=== PATIENT | female | born 1990 | race Caucasian/White ===

== ENCOUNTER 2017-06-16 12:39 | Emergency (ER) | payer OTHER ==
[2017-06-16 12:44] VITALS: TEMP 98.1; O2SAT 99
--- NOTE | 2017-06-16 13:10 | EDPHY ---
H & P Smoking Status: Never smoked Time Seen by Provider: 06/16/17 12:48 HPI/ROS: CHIEF COMPLAINT: Fall, right hip and elbow pain HISTORY OF PRESENT ILLNESS: 27-year-old female presents to the emergency department with pain in her right hip and her left elbow. The patient was in you trauma 6 days ago and fell while she was hiking. She landed on her right hip. She states that rocks were falling and she got hit in her left elbow as well as abrasions in her lower legs. She ran and ultra marathon, 60 miles, on , 4 days after her original fall and although she had pain she was able to finish. She states that she return to [place] the following day on Saturday and today now 2 days later she has had increasing pain especially in her right hip. She is unable to lie on her right side because of the pain in her right hip which causes than her toes to go numb. She has some mild pain in her left elbow and is more concerned that she has retained rock in her left elbow. She is unsure of her last tetanus shot. She denies paresthesias in her upper or lower extremities. Denies abdominal pain. Denies neck or back pain. Denies chest pain or difficulty breathing. Denies headache. She did not hit her head or lose consciousness. REVIEW OF SYSTEMS: Constitutional: No fever, no chills. Eyes: No double or blurry vision. ENT: No sore throat. Respiratory: No cough, no shortness of breath. Cardiac: No chest pain. Gastrointestinal: No abdominal pain, vomiting or diarrhea. Genitourinary: No dysuria. Musculoskeletal: No neck or back pain. Skin: Abrasions. No rashes. Neurological: No headache. (Patricia Rocha) Past Medical/Surgical History: Negative (Patricia Rocha M) Social History: Recently moved to [place] from [place] (Josefina,Patricia M) Physical Exam: General Appearance: Alert, no distress. No visible signs of trauma to her head. She is mentating normally and answering questions appropriately. Eyes: Pupils equal and round. Extraocular motions are all intact. ENT: Mouth: Mucous membranes moist. Respiratory: No wheezing, rhonchi, or rales, lungs are clear to auscultation. Cardiovascular: Regular rate and rhythm. Gastrointestinal: Abdomen is soft and nontender, no masses, no rebound or guarding, bowel sounds normal. Neurological: Alert and oriented x 3, cranial nerves II through XII grossly intact Skin: Warm and dry, no rashes. Musculoskeletal: Nontender to palpate along the cervical, thoracic or lumbar spine. Neck is supple. Extremities: Large hematoma noted to the posterior lateral aspect of her right hip and buttock. It extends down to the mid right thigh. It is tender to palpate. She is able to fully extend her right hip and her right knee however this does cause pain. She has pain although mildly with external and internal rotation of her right hip. Nontender to palpate over the lumbar spine over right or left flank area. Psychiatric: Patient is oriented X 3, there is no agitation. (Patricia Rocha) Constitutional: Initial Vital Signs Temperature (C) 36.7 C 06/16/17 12:40 Heart Rate 92 06/16/17 12:40 Respiratory Rate 18 06/16/17 12:40 Blood Pressure 107/72 06/16/17 12:40 O2 Sat (%) 99 06/16/17 12:40 O2 Delivery Mode Room Air Allergies/Adverse Reactions: cefaclor [From Ceclor] Allergy (Verified 06/16/17 12:41) doxycycline Allergy (Verified 06/16/17 12:42) Penicillins Allergy (Verified 06/16/17 12:41) Home Medications: Medication Instructions Recorded NK [No Known Home Meds] 06/16/17 Medical Decision Making - Diagnostics Imaging: I viewed and interpreted images myself ED Course/Re-evaluation: 27-year-old female presents to the emergency department with injury to her right hip and left elbow. X-rays reveal no fractures. The patient has a large hematoma noted to the right buttock and posterior thigh. No evidence of compartment syndrome. She is able to ambulate. No signs of infection. Patient was given orthopedic referral. (Patricia Rocha) I did not see this patient while she was in the emergency department. However her care was discussed with the PA while the patient was in the department. I agree with treatment plan and management (Rome Cuello) Differential Diagnosis: Including but not limited to fracture, dislocation, contusion, sprain (Patricia Rocha) - Data Points Medications Given: Discontinued Medications Diphtheria/Tetanus/Acell Pertussis (Boostrix) 0.5 ml IM .ONCE ONE Stop: 06/16/17 13:46 Last Admin: 06/16/17 13:53 Dose: 0.5 ml Departure - Departure Disposition: Home, Routine, Self-Care Clinical Impression: Contusion of right hip, Hematoma of right hip, Superficial abrasion, Contusion of left elbow Condition: Good Instructions: Contusion in Adults (ED), Abrasion (ED), Acute Wounds (ED) Additional Instructions: Ice to help reduce swelling. Ibuprofen 600mg every 8 hours for pain as directed. Weight bear and activity as tolerated. Referrals: Griffin Arechiga MD [Medical Doctor] - 2-3 days, call for appt. (Orthopedic surgeon on-call)
[2017-06-16] MEDS ORDERED: TDAP ADULT 0.5 ML INJ (BOOSTRIX) IM ONE (13:45)
[2017-06-16 13:59] VITALS: BP 109/71; PULSE 62; RESP 16
== END 2017-06-16 13:58 | disposition home or self-care (01) ==
DX: S70.01XA Contusion of right hip, initial encounter (principal); S50.02XA Contusion of left elbow, initial encounter; S80.811A Abrasion, right lower leg, initial encounter; Z23 Encounter for immunization; W18.09XA Striking against other object with subsequent fall, initial encounter; Y99.8 Other external cause status; Y93.01 Activity, walking, marching and hiking

== ENCOUNTER 2018-12-22 05:41 | Observation (INO) | payer MEDICAID ==
--- NOTE | 2018-12-21 19:55 | PDGENHP ---
History and Physical - Chief Complaint Bilateral Hip Pain - History of Present Illness 1. Bilateral~Femoroacetabular impingement (KADEN) Cam type 2. Clinical suspicion of Bilateral Femoral Antetorsion HISTORY OF PRESENT ILLNESS: Normais a~28 y.o.~very~~active~female~who I have had the pleasure to consult on today.~I have enjoyed meeting her.~Nisha~lives in [place].~~Normaruns a [employer].~~Nisha~is ;~nisha~has 2~children (6 yo twin girls).~~Normaenjoys distance running, climbing, mountaineering. Dukes~bilateral~hip pain started 2014 on the L, with~some~recalled trauma or injury~(planted on her L foot resulting in a foot fracture, but had continued L hip pain at that), and with~some~previous complaints~(some mild pain since childhood).~R side has been bothering her for about 2 years. Unable to do any of her activities since April 2018.~Normadoes not have~a known history of hip dysplasia. Presentation today is of~anterior~and C-shaped distribution~bilateral~hip pain. ~The hip~does~wake her~at night and~does~click and catch on~her. Sitting~does not present a problem~for her.~Normadoes not~report suffering from lower back pain episodes. Normahas~participated in physical therapy in 2014 x1 year (continues home exercises)~and has not~tried other conservative measures.~Nisha~has not~received sufficient symptomatic improvement. Normahas~utilized medication for pain management, including NSAID.~Normahas used medication when being more active or running x1 year. Normaunderstands that~nisha~has a hip and pelvis problem which should be researched and wishes to get a better understanding of~her~hip status, followed by an establishment of a treatment strategy, hoping~basilwould be able to get back to~her~well being active life. History: Past medical history:~~ Patient~~has no past medical history on file. Relevant familial history:~Unknown (adopted) Past surgical history:~ No. Surgery Anesthesia Year Outcome 1 Epidural 2011 No complications Normahas never received general anesthesia. I have reviewed, verified and agree with the past medical, surgical, family and social history. Current Medications:~has a current medication list which includes the following prescription(s): acetazolamide, ciprofloxacin, nifedipine, and ondansetron. ALLERGIES:~has no allergies on file. Objective: Physical Examination: Normais 5~feet~1~inches tall and weighs~112~Lbs. Normais AAO x3; she~is well -nourished, in NAD. Skin is warm and dry. ~Breathing is non-labored. ~CV with RRR by pulse. Abdomen is soft, NTND. Currently,~she~walks with a~normal~gait. Trendelenburg sign is~negative~and proprioception~is reduced,~both~sides. She~presents~with mild~signs of joint laxity.~Beightons Score:~4 (b/l knees, L elbow, L pinky) She~is fit looking. ~~ Lower spine examination is~negative~for sciatic or femoral nerve irritation with negative~SLR &~femoral stretch tests. Range of motion of the spine is normal~for flexion, extension, and rotations,~with no~associated pain. Strength, Sensation and pulses are~normal -~bilaterally Ankles and knees exams are~normal~and~no~mal-alignment is evident.~ She~has~no leg length discrepancy. Thigh circumference is~symmetric~with no evidence for muscle atrophy~on both~ sides. Hip ROM (degrees): FL ER At 90~hip FL IR At 90~hip FL AB AD EX IR Neutral hip ER Neutral hip R 100 45 30 35 5 5 50 15 L 100 45 20 35 10 5 50 10 Specific hip and pelvis tests: Impingement Test SUKHJINDER Roll Add. Longus R +++ +++ Negative Negative L +++ +++ Negative Negative Glut. Med ITB Posterior Imp R +++ 5/5 strength Negative 5/5 strength +++~(anterior) L +++ 5/5 strength Negative 5/5 strength +++~(anterior) Squeeze test measured~weak~with anterior groin pain. Bony Symphysis pubis is~pain free~to touch while concentric activity of the rectus abdominis, does not~produce pain at its insertion. Ilio Psos specific tests are~negative for pain during cycling for~both hips~and~ remarkable for non painful snap HF has~pain~both hips.~L>>R Lateral~capsule tenderness bilaterally. Greater trochanteric burse is~painful~on both hips. Piriformis tests: FAIR is~negative,~with no~local signs of neuritis related to sciatic nerve. SIJs examination is~normal~with~normal~SUKHJINDER in relation and local tenderness. Hamstrings tests are~positive~tendinopathy the left hip. On a daily basis, the following percentages reflectMisty's overall total pain: Deep hip:~80% GT:~20% Imaging: Radiology studies which I~have personally reviewed, analyzed and measured are below: XR: AP of the hip and pelvis: Performed in a~good~technique Coccyx to pubic symphysis distance~2~cm. 10~degrees cephal [place]~Lines are preserved. Minimal~Pathological signs are seen in the Symphysis Pubis.~ Minimal~Pathological signs are seen at the Ischial~tuberosity. ~ Specific measurements show:~ 0 deg WB (10 deg corrected) NSA~ LCE Sourcil~Angle Sharp's angle Lat. Cam Lat. Pincer C.Over~sign Head~Coverage % ATDmm R 133 28 3 38 Neg Neg 1-2:00 75% 20.4 L 133 31 4 40 Neg Neg 1-2:00 77% 24.5 Pos. wall sign ISS NAD ~~Dysplasia Comments R Negative + 10.8~mm Negative L Negative + 9.7~mm Negative Sclerosis Sup. Lat. OA Cysts Joint Space-WBZ Joint Space-Medial R Negative Negative Negative 3.4~mm 3.0~mm L Negative Negative Negative 3.4~mm 3.0~mm X Table lateral: Anterior cam lesion is~seen~on both hips. Alpha Angle: ~ Right~55~degrees Left~51~degrees Impression and plan:Robinson Greenis a~28 y.o.~active female~suffering from symptomatic~Bilateral~ Femoroacetabular impingement (KADEN) Cam type,~Clinical suspicion of Bilateral Femoral Antetorsion~causing significant disability to~her~and altering~her~ sport and life activities. Physical examination, imaging, and~her~story correspond with the diagnosis mentioned above. I explained that femoral malrotation is a condition wherein the hip joint has excessive play~and instability due to the orientation of the femur bone or where the femur bone is rotated towards the back of the hip socket resulting in additional impingement pathology. This pathology ranges in severity with treatment options being specific to the nature of the problem. Left untreated, the ante-torsion related instability or the retro-torsion related impingement in the hip joint can cause progressive tearing of the labrum and deterioration of the surface cartilage, ultimately resulting in progressive osteoarthritis of the hip. ~ I explained that femoroacetabular impingement (KADEN - Cam type) arises due to a bony or soft tissue conflict between the femur (ball) and acetabulum (socket) caused by an abnormality in the shape of the femoral head and neck. Over time, repetitive impingement can result in damage to the labrum and adjacent surface cartilage within the socket, ultimately giving rise to progressive osteoarthritis of the hip. ~ I explained that although a labral tear can be a source of pain, it is rarely the root of the problem and typically occurs secondary to an underlying abnormality in the shape and mechanics of the hip joint. ~ I reviewed conservative treatment options for Femoral malrotation and KADEN including activity modification to avoid positions of impingement or instability , physical therapy, non-steroidal anti-inflammatory medications, and various injections (corticosteroid and PRP) aimed at reducing inflammation in the hip joint or/and preventing dynamic instability and impingement. PRP injections may promote healing and reduce symptoms in certain cases but it will not repair chronically damaged tissue. Although these measures may help to buy time~and reduce current level of symptoms, they are not a definitive solution to the problem given the underlying abnormality in the shape of the hip joint. ~ Patients who have failed conservative management and continue to experience symptoms are candidates for definitive surgical treatment, which may consist of hip arthroscopy alone or in combination with more invasive bony realignment procedures of the femur called derotational femoral osteotomy (DFO), where the femur bone is rotated to the normal anatomical range. ~ Hip arthroscopy typically includes treating the labrum with either repair or reconstruction of the torn labrum; as well as addressing the underlying abnormalities by restoring the normal shape to the hip joint. If the cartilage is damaged a Microfracture surgical procedure may also be necessary to help stimulate the growth of fibrocartilage. If a patient requires a labral reconstruction or a microfracture, the initial rehabilitation from the surgery may take longer, but the roasterman results are typically favorable. I reviewed the technical aspects of hip arthroscopy including risks, benefits, and expected course of recovery. Haydee understands that hip arthroscopy is a minimally invasive outpatient procedure carried out through small incisions on the outer aspect of the hip joint. During surgery, the labral tear will be identified and either repaired or reconstructed using bone anchors and suture material. Additionally, any excessive bone will be removed with a high-speed smiley to reshape the hip joint and restore normal anatomy. Risks include infection, bleeding, injury to nearby nerves or vessels, stiffness, persistent pain, instability, venous thromboembolic disease, and traction related complications including temporary foot numbness. Rarely, revision surgery may be required to address these problems. Overall recovery takes approximately 4 8 months depending on the extent of damage and degree of repair. In the event that the labral tissue quality is inadequate for successful repair and healing, Haydee understands that a labral reconstruction will be performed. This procedure entails placing a cadaver tissue graft within the hip joint and stabilizing it with bone anchors to build a new labrum. The overall recovery time for labral reconstruction is similar to that of labral repair, although the surgical procedure takes longer to perform. Normawill review the info presented. In order to obtain more detailed information regarding the alignment, orientation, and shape of the bony hip and pelvis I will order a CT scan to be performed. The results of the CT scan, including femoral torsion and acetabular version measured values and 3D images, will aid me in deciding on the best treatment strategy and surgical pre-planning. In order to better evaluate the soft tissues and cartilage of the hip joint, I will order an MRI scan~- L hip. Normais going to contact us after completing her~imaging studies and return for a follow-up appointment.~We will need to evaluate her femoral torsion on the CT scan to confirm our surgical plan of hip arthroscopy versus possible need for DFO if she has excessive antetorsion. Normais happy with this plan. I have also supplied~her~with handouts, outlining the expected surgical treatment and rehab involved. I wish~Normaall the best, ~~ Yamila Hummel MD History Information - Allergies/Home Medication List Allergies/Adverse Reactions: cefaclor [From Ceclor] Allergy (Verified 06/16/17 12:41) doxycycline Allergy (Verified 06/16/17 12:42) Penicillins Allergy (Verified 06/16/17 12:41) Home Medications: NK [No Known Home Meds] 06/16/17 [Last Taken Unknown] I have personally reviewed and updated: medical history - Social History Smoking Status: Never smoked Review of Systems Review of Systems: Physical Exam Physical Exam:
[2018-12-22] MEDS ORDERED: CLINDAMYCIN 900 MG/DEXTROSE 50 ML IV ONE (06:13)
[2018-12-22] MEDS ORDERED: ACETAMINOPHEN 500 MG TAB PO ONE (06:13)
[2018-12-22] MEDS ORDERED: PREGABALIN 150 MG CAP PO ONE (06:13)
[2018-12-22] MEDS ORDERED: LR 1,000 ML IV ONE (06:15)
[2018-12-22] MEDS ORDERED: LIDOCAINE 1% 2 ML INJ ID PRN (06:15)
[2018-12-22] MEDS ORDERED: EPINEPHrine 30 MG/30 ML MDV (0.1 MG/0.1 ML) ONE (06:24)
[2018-12-22] MEDS ORDERED: BUPIVACAINE/EPI 0.25% 30 ML SDV ONE ×2 (06:24→07:18)
[2018-12-22] MEDS ORDERED: SCOPOLAMINE HYDROBROMIDE 1 MG/3 DAYS PATCH TD ONE (07:00)
[2018-12-22] MEDS ORDERED: MIDAZOLAM 2 MG/2 ML VIAL IVP ONE (07:07)
--- NOTE | 2018-12-22 07:09 | PDANEPAE ---
ANE Past Medical History - Cardiovascular History Hx Hypertension: No Hx Arrhythmias: No Hx Chest Pain: No Hx Coronary Artery / Peripheral Vascular Disease: No Hx CHF / Valvular Disease: No Hx Palpitations: No - Pulmonary History Hx COPD: No Hx Asthma/Reactive Airway Disease: No Hx Recent Upper Respiratory Infection: No Hx Oxygen in Use at Home: No Hx Sleep Apnea: No Sleep Apnea Screening Result - Last Documented: Negative - Neurologic History Hx Cerebrovascular Accident: No Hx Seizures: No Hx Dementia: No - Endocrine History Hx Diabetes: No Obesity: no - Renal History Hx Renal Disorders: No - Liver History Hx Hepatic Disorders: No - Neurological & Psychiatric Hx Hx Neurological and Psychiatric Disorders: No - Cancer History Hx Cancer: No - Congenital Disorder History Hx Congenital Disorders: No Congenital History Comment: uknown adopted - GI History GERD: no Hx Gastrointestinal Disorders: No - Other Health History Other Health History: hx of anemia. dysmenorrhea on merena - Chronic Pain History Chronic Pain: No - Surgical History Prior Surgeries: wisdom teeth removed. ANE Review of Systems Review of Systems: - Exercise capacity METS (RN): 5 METS ANE Patient History - Allergies Allergies/Adverse Reactions: amoxicillin Allergy (Verified 12/22/18 06:17) cefaclor [From Ceclor] Allergy (Verified 06/16/17 12:41) doxycycline Allergy (Verified 06/16/17 12:42) Penicillins Allergy (Verified 06/16/17 12:41) - Home Medications Home medications: home medication list seen and reviewed Home Medications: NK [No Known Home Meds] 06/16/17 [Last Taken Unknown] - NPO status NPO Status: no food or drink >8 hours NPO Since - Liquids (Date): 12/21/18 NPO Since - Liquids (Time): 20:00 NPO Since - Solids (Date): 12/21/18 NPO Since - Solids (Time): 20:00 - Anes Hx Anes Hx: post operative nausea and vomiting - Smoking Hx Smoking Status: Never smoked - Family Anes Hx Family Hx Anesthesia Complications: uknown ANE Labs/Vital Signs - Vital Signs Height: 154.94 cm Weight: 50.802 kg ANE Physical Exam - Airway Neck exam: FROM Mallampati Score: Class 1 Mouth exam: normal dental/mouth exam - Pulmonary Pulmonary: no respiratory distress, no rales or rhonchi, clear to auscultation - Cardiovascular Cardiovascular: regular rate and rhythym, no murmur, rub, or gallop - ASA Status ASA Status: I ANE Anesthesia Plan Anesthesia Plan: general endotracheal anesthesia
[2018-12-22] MEDS ORDERED: BUPIVACAINE 0.25% 30 ML SDV ONE (07:17)
[2018-12-22] MEDS ORDERED: fentaNYL 100 MCG/2 ML INJ ONE (07:25)
[2018-12-22] MEDS ORDERED: ROCURONIUM 50 MG/5 ML VIAL ONE (07:26)
[2018-12-22] MEDS ORDERED: DEXAMETHASONE 4 MG/ML VIAL ONE ×2 (07:26)
[2018-12-22] MEDS ORDERED: PROPOFOL/EMULSION 500 MG/50 ML BOTTLE IV ONE ×3 (07:26→09:56)
[2018-12-22] MEDS ORDERED: ONDANSETRON 4 MG/2 ML VIAL ONE ×2 (07:26)
[2018-12-22] MEDS ORDERED: LIDOCAINE 2% 5 ML SDV ONE (07:27)
[2018-12-22] MEDS ORDERED: DEXMEDETOMIDINE HCL 200 MCG in NS 50 ML IV ONE (07:41)
[2018-12-22] MEDS ORDERED: PROMETHAZINE HCL 25 MG/ML INJ IVP PRN (12:47)
[2018-12-22] MEDS ORDERED: MEPERIDINE 25 MG/0.5 ML AMP IVP PRN (12:47)
[2018-12-22] MEDS ORDERED: ONDANSETRON 4 MG/2 ML VIAL IVP PRN ×2 (12:47→13:39)
[2018-12-22] MEDS ORDERED: LR 500 ML IV PRN (12:47)
[2018-12-22] MEDS ORDERED: ACETAMINOPHEN 500 MG TAB PO PRN (12:47)
[2018-12-22] MEDS ORDERED: HYDROCODONE/APAP 5/325 TAB PO PRN (12:47)
[2018-12-22] MEDS ORDERED: NALOXONE HCL 0.4 MG/ML INJ IVP PRN (12:47)
[2018-12-22] MEDS ORDERED: fentaNYL 100 MCG/2 ML INJ IVP PRN (12:47)
[2018-12-22] MEDS ORDERED: DIAZEPAM 5 MG/ML 1 ML SYR IVP PRN (12:47)
[2018-12-22] MEDS ORDERED: METOCLOPRAMIDE 10 MG/2 ML VIAL IVP PRN (12:47)
[2018-12-22] MEDS ORDERED: PROPOFOL 200 MG/20 ML VIAL ONE (12:48)
[2018-12-22] MEDS ORDERED: KETOROLAC 30 MG/1 ML SDV ONE (13:13)
[2018-12-22] MEDS ORDERED: HYDROmorphONE/DILAUDID 1 MG/ML INJ IVP PRN (13:39)
[2018-12-22] MEDS ORDERED: ONDANSETRON DISINTEGRATING 4 MG TAB PO PRN (13:39)
[2018-12-22] MEDS ORDERED: HYDROmorphONE/DILAUDID 2 MG TAB PO PRN (13:42)
--- NOTE | 2018-12-22 13:44 | POSTOPPROG ---
Post Op Note Date of Operation: 12/22/18 Surgeon: Aravind Harrell Deposition Reporter: Dr. Mane Anesthesia: GET(General Endotracheal) Pre-op Diagnosis: Bilateral KADEN Post-op Diagnosis: Bilateral KADEN Procedure: Bilateral hip arthroscopy Inf/Abcess present in the surg proc area at time of surgery?: No
--- NOTE | 2018-12-22 14:19 | POSTANESTH ---
Post Anesthetic Evaluation Cardiovascular Status: Similar to Pre-Op Cond Respiratory Status: Normal, Stable, Similar to Pre-op Cond. Level of Consciousness/Mental Status: Can Participate in Eval, Moderately Sleepy Pain Control: Adequate, Prn Tx Ordered Nausea/Vomiting Control: Adequate, Prn Tx Ordered Complications Possibly Related to Anesthesia: None Noted
[2018-12-23] MEDS: DIAZEPAM 2 MG TAB PO PRN ×2 (04:07→05:06)
[2018-12-23 08:16] VITALS: BP 94/57
== END 2018-12-23 10:20 | disposition home or self-care (01) ==
LOC: F3N 05:41 → EDSTATUS 07:15 → F3N 15:22
PROVIDERS: ADMIT Orthopaedic Surgery Sports Medicine; ATTEND Orthopaedic Surgery Sports Medicine
PROC: 0SQ94ZZ Repair Right Hip Joint, Percutaneous Endoscopic Approach (ICD-10-PCS; principal; 2018-12-22 07:15)
DX: M25.851 Other specified joint disorders, right hip (principal); M25.852 Other specified joint disorders, left hip
CPT/HCPCS: 29914; 29916; 76000; 97116; 97161; G0378; C1713; J0171; J1100; J1885; J2250; J2405; J2704; J3010